=== PATIENT | female | born 2000 | race Caucasian/White ===

== ENCOUNTER 2022-09-30 19:18 | Emergency (ER) | payer OTHER, SELFPAY ==
[2022-09-30 19:48] VITALS: BP 123/80; PULSE 85; RESP 18; TEMP 36.7; O2SAT 99; BMI 28.2
--- NOTE | 2022-09-30 20:22 | ED.NURSE ---
pt. did not want to see MD and signed refusal form. pt. left ambulatory with mother.
--- NOTE | 2022-09-30 20:32 | ED.NURSE ---
pt. called stating she didn't want to be seen by MD. was unable to sign refusal note.
== END 2022-09-30 20:33 | disposition home or self-care (01) ==
LOC: ED 20:26
DX: Z53.21 Procedure and treatment not carried out due to patient leaving prior to being seen by health care provider (principal)
CPT/HCPCS: 99281

== ENCOUNTER 2023-04-10 22:55 | Emergency (ER) | payer OTHER, SELFPAY ==
[2023-04-10 23:00] VITALS: BP 120/82; PULSE 86; RESP 16; TEMP 36.8; O2SAT 98; BMI 28.1
[2023-04-10 23:52] VITALS: O2SAT 98
[2023-04-11] MEDS: KETOROLAC 30 MG/ML inj IVP (00:02)
--- NOTE | 2023-04-11 00:10 | ED_ITS ---
HPI - General Adult General Chief complaint: Chest Pain <Deo Stanley MD - Last Filed: 04/11/23 01:44> Stated complaint: chest pain, hard time breathing <Deo Stanley MD - Last Filed: 04/11/23 01:44> Time Seen by Provider: 04/10/23 23:03 <Deo Stanley MD - Last Filed: 04/11/23 01:44> History of Present Illness HPI narrative: CP with trouble taking deep breaths since 2099. waves come and go, feels heart beat in abd and shoulders - beating hard 22-year-old young woman presenting to the emergency department complaint of midsternal chest pain beginning around 3 hours prior to presentation. She has not noticed irregular heartbeats but has felt that it is fast. She did not really keep track of this indicating that she has been watching the monitor and seen it at 105. Head cold symptoms couple of weeks ago but that seems to have resolved. Otherwise no fever. No cough. There is some pleuritic component. No leg swelling or pain. I ask about similar occurrences and she says she did feel similarly around a COVID vaccines may have been x2. She admits to being anxious about feeling this chest pain but otherwise does not sound as though anxiety preceded chest pain that she is aware of. She is not feeling lightheaded. The pain improves somewhat when she sits up. Does not describe any nausea. No rashes noted. No trauma. <Deo Stanley MD - Last Filed: 04/11/23 01:44> Related Data Home medications: Home Medications Medication Instructions Recorded Confirmed bupropion HCl 75 mg tablet 75 mg PO DAILY 09/30/22 04/10/23 escitalopram oxalate 10 mg tablet 10 mg PO DAILY 09/30/22 04/10/23 escitalopram oxalate 5 mg tablet 5 mg PO DAILY 09/30/22 04/10/23 hydroxyzine HCl 25 mg tablet 25 mg PO BID PRN 09/30/22 09/30/22 levonorgestrel-ethinyl estradiol 1 tab PO DAILY 09/30/22 04/10/23 0.1 mg-20 mcg tablet (Vienva) <Deo Stanley MD - Last Filed: 04/11/23 01:44> Allergies/adverse reactions: Allergies Allergy/AdvReac Type Severity Reaction Status Date / Time amoxicillin Allergy Mild Hives Verified 04/11/23 01:43 cefdinir Allergy Mild Hives Verified 04/11/23 01:43 triptans AdvReac Uncoded 04/11/23 01:43 <Deo Stanley MD - Last Filed: 04/11/23 01:44> Review of Systems Status of ROS: Reports: 6 or more systems reviewed and unremarkable except as noted in History and below <Deo Stanley MD - Last Filed: 04/11/23 01:44> [facility] Social History: Social History Smoking Status: Never smoker How often do you have a drink containing alcohol: never AUDIT-C Alcohol total score: 0 Non-prescribed substance use: denies use <Deo Stanley MD - Last Filed: 04/11/23 01:44> Exam Narrative: Exam Narrative: Pleasant. Tall. Appears mildly anxious. Breathing easily though with inspiratory efforts for auscultation seems to cause a little discomfort. Cranial nerves 2-12 are intact. There is no supraclavicular crepitus. Lungs appear to be clear. Heart is on my evaluation elevated to tachycardic. No murmur rub or gallop. On triage measured 86. Abdomen is soft nontender. There is reproducible pain to palpation of the mid sternum. Legs are without edema and negative Homans/nontender. <Deo Stanley MD - Last Filed: 04/11/23 01:44> Const: Vital Signs, click to edit/add: Vital Signs - 24 hr 04/10/23 23:00 04/10/23 23:52 04/11/23 00:30 Temperature 98.3 F Pulse Rate [Left P ulse Oximeter] 86 87 Respiratory Rate 16 16 Blood Pressure [Le ft Upper Arm] 120/82 112/70 Pulse Oximetry 98 98 98 Oxygen Delivery Me thod Room Air Room Air 04/11/23 01:00 04/11/23 01:33 Temperature Pulse Rate [Left P ulse Oximeter] 91 87 Respiratory Rate 16 16 Blood Pressure [Le ft Upper Arm] 122/74 126/77 Pulse Oximetry 98 96 Oxygen Delivery Me thod Room Air Room Air <Deo Stanley MD - Last Filed: 04/11/23 01:44> Vital Signs, click to edit/add: Vital Signs - 24 hr 04/10/23 23:00 04/10/23 23:52 04/11/23 00:30 Temperature 98.3 F Pulse Rate [Left P ulse Oximeter] 86 87 Respiratory Rate 16 16 Blood Pressure [Le ft Upper Arm] 120/82 112/70 Pulse Oximetry 98 98 98 Oxygen Delivery Me thod Room Air Room Air 04/11/23 01:00 04/11/23 01:33 Temperature Pulse Rate [Left P ulse Oximeter] 91 87 Respiratory Rate 16 16 Blood Pressure [Le ft Upper Arm] 122/74 126/77 Pulse Oximetry 98 96 Oxygen Delivery Me thod Room Air Room Air <Briana Akins MD - Last Filed: 04/11/23 02:51> Documenting provider has reviewed patient's vital signs: yes <Deo Stanley MD - Last Filed: 04/11/23 01:44> Course Vital Signs Vital signs: Initial Vital Signs Temperature 98.3 F 04/10/23 23:00 Temperature Source Temporal Artery Scan 04/10/23 23:00 Pulse Rate 86 04/10/23 23:00 Respiratory Rate 16 04/10/23 23:00 Blood Pressure 120/82 04/10/23 23:00 Blood Pressure Mean 94 04/10/23 23:00 Blood Pressure Position Sitting 04/10/23 23:00 Pulse Oximetry 98 04/10/23 23:00 Oxygen Delivery Method Room Air 04/10/23 23:00 Vital Signs Temperature 98.3 F 04/10/23 23:00 Pulse Rate 86 04/10/23 23:00 Respiratory Rate 16 04/10/23 23:00 Blood Pressure 120/82 04/10/23 23:00 Pulse Oximetry 98 04/10/23 23:00 Oxygen Delivery Method Room Air 04/10/23 23:00 Temperature 98.3 F 04/10/23 23:00 Pulse Rate 87 04/11/23 01:33 Respiratory Rate 16 04/11/23 01:33 Blood Pressure 126/77 04/11/23 01:33 Pulse Oximetry 96 04/11/23 01:33 Oxygen Delivery Method Room Air 04/11/23 01:33 <Deo Stanley MD - Last Filed: 04/11/23 01:44> Initial Vital Signs Temperature 98.3 F 04/10/23 23:00 Temperature Source Temporal Artery Scan 04/10/23 23:00 Pulse Rate 86 04/10/23 23:00 Respiratory Rate 16 04/10/23 23:00 Blood Pressure 120/82 04/10/23 23:00 Blood Pressure Mean 94 04/10/23 23:00 Blood Pressure Position Sitting 04/10/23 23:00 Pulse Oximetry 98 04/10/23 23:00 Oxygen Delivery Method Room Air 04/10/23 23:00 Vital Signs Temperature 98.3 F 04/10/23 23:00 Pulse Rate 86 04/10/23 23:00 Respiratory Rate 16 04/10/23 23:00 Blood Pressure 120/82 04/10/23 23:00 Pulse Oximetry 98 04/10/23 23:00 Oxygen Delivery Method Room Air 04/10/23 23:00 Temperature 98.3 F 04/10/23 23:00 Pulse Rate 87 04/11/23 01:33 Respiratory Rate 16 04/11/23 01:33 Blood Pressure 126/77 04/11/23 01:33 Pulse Oximetry 96 04/11/23 01:33 Oxygen Delivery Method Room Air 04/11/23 01:33 <Briana Akins MD - Last Filed: 04/11/23 02:51> Medical Decision Making MDM Narrative Medical decision making narrative: Appears to have reproducible chest wall pain. That the improvement with sitting up suggests possible pericarditis. However I have already seen EKG and there is no evidence of that. Other differential includes pulmonary embolus, pneumothorax, pneumonia, vascular disruption and less likely ischemic cardiovascular disease. Will be doing a chest x-ray. EKG initially reviewed by me shows normal sinus rhythm rate 100 without ischemic changes appreciated. She is requesting ice water to drink. I think that's fine. Also ordered ketorolac IV. White count is not elevated. D-dimer does return elevated at 0.75. Negative troponin. Chest x-ray reviewed by me looks to show normal mediastinum normal cardiac silhouette no infiltrate and without pneumothorax. We discussed this elevated D-dimer. She has had intermittent tachycardia during her time here. Of pain is overall improved with ketorolac is given. I suspect still a chest wall pain/costochondritis picture. Perhaps exacerbated by anxiety. She, in consultation with her mother, acknowledge that prior episodes like this which both times were apparently after COVID injections were with elevated D-dimer and chest pain shortness of breath some tachycardia prompting the urgency room to do a CTA of her chest. These scans were negative. With attempted to locate these prior D-dimers; unable to do so at this time of night. No family history of coagulopathy. I think it would be acceptable to see over 24 hours where these symptoms are going treat with NSAIDs. Understandably Mae would like to proceed with CT imaging yet tonight. CT imaging will be pending at change of shift. See patient discharge plan anticipating negative chest for pulmonary embolus <Deo Stanley MD - Last Filed: 04/11/23 01:44> Appears to have reproducible chest wall pain. That the improvement with sitting up suggests possible pericarditis. However I have already seen EKG and there is no evidence of that. Other differential includes pulmonary embolus, pneumothorax, pneumonia, vascular disruption and less likely ischemic cardiovascular disease. Will be doing a chest x-ray. EKG initially reviewed by me shows normal sinus rhythm rate 100 without ischemic changes appreciated. She is requesting ice water to drink. I think that's fine. Also ordered ketorolac IV. White count is not elevated. D-dimer does return elevated at 0.75. Negative troponin. Chest x-ray reviewed by me looks to show normal mediastinum normal cardiac silhouette no infiltrate and without pneumothorax. We discussed this elevated D-dimer. She has had intermittent tachycardia during her time here. Of pain is overall improved with ketorolac is given. I suspect still a chest wall pain/costochondritis picture. Perhaps exacerbated by anxiety. She, in consultation with her mother, acknowledge that prior episodes like this which both times were apparently after COVID injections were with elevated D-dimer and chest pain shortness of breath some tachycardia prompting the urgency room to do a CTA of her chest. These scans were negative. With attempted to locate these prior D-dimers; unable to do so at this time of night. No family history of coagulopathy. I think it would be acceptable to see over 24 hours where these symptoms are going treat with NSAIDs. Understandably Mae would like to proceed with CT imaging yet tonight. CT imaging will be pending at change of shift. See patient discharge plan anticipating negative chest for pulmonary embolus Update: Receiving Physician: CT reviewed with no evidence of pulmonary embolism. Discharge with previous provider recommendations. No changes to plan of care.- Dr. Akins <Briana Akins MD - Last Filed: 04/11/23 02:51> Lab Data Lab results reviewed: Yes I reviewed the patient's lab results <Deo Stanley MD - Last Filed: 04/11/23 01:44> Labs: Lab Results 04/11/23 Range/Units 00:01 WBC 10.65 (4.50-11.00) K/uL RBC 4.38 (4.00-5.20) m/uL Hgb 12.9 (12.0-16.0) gm/dL Hct 38.8 (33.0-51.0) % MCV 89 (80-100) fL MCH 30 (26-34) pg MCHC 33 (32-36) gm/dL RDW Coeff of Holli 12.7 (11.5-15.5) % Plt Count 296 (140-440) K/uL Neut % (Auto) 70.2 (42.0-72.0) % Lymph % (Auto) 21.3 (20-44) % [place] % (Auto) 7.0 (0.0-11.0) % Eos % (Auto) 0.9 (0.0-7.0) % Baso % (Auto) 0.2 (0.0-3.0) % Neut # (Auto) 7.47 H (1.7-7.0) K/uL Lymph # (Auto) 2.27 (0.90-2.90) K/uL [place] # (Auto) 0.70 (0.00-0.90) K/UL Eos # (Auto) 0.10 (0.00-0.50) K/uL Baso # (Auto) 0.02 (0.00-0.30) K/uL D-Dimer Quant (PE/DVT) 0.75 H (0.00-0.50) ug/ml Sodium 141 (135-149) mmol/L Potassium 3.8 (3.6-5.1) mmol/L Chloride 109 (96-114) mmol/L Carbon Dioxide 24 (20-32) mmol/L BUN 12 (5-24) mg/dL Creatinine 0.6 (0.5-1.5) mg/dL Estimated Creat Clear 149.62 Estimated GFR 131 ml/min Glucose 143 H (60-115) mg/dL Calcium 9.0 (8.4-10.6) mg/dL Troponin I < 0.01 L (0.01-0.04) ng/mL C-Reactive Protein 1.3 H (0.5-1.0) mg/dL NT-Pro-B Natriuret Pep < 20 pg/mL POC Troponin I 0.00 L (0.01-0.04) ng/ml <Deo Stanley MD - Last Filed: 04/11/23 01:44> Lab Results 04/11/23 Range/Units 00:01 WBC 10.65 (4.50-11.00) K/uL RBC 4.38 (4.00-5.20) m/uL Hgb 12.9 (12.0-16.0) gm/dL Hct 38.8 (33.0-51.0) % MCV 89 (80-100) fL MCH 30 (26-34) pg MCHC 33 (32-36) gm/dL RDW Coeff of Holli 12.7 (11.5-15.5) % Plt Count 296 (140-440) K/uL Neut % (Auto) 70.2 (42.0-72.0) % Lymph % (Auto) 21.3 (20-44) % [place] % (Auto) 7.0 (0.0-11.0) % Eos % (Auto) 0.9 (0.0-7.0) % Baso % (Auto) 0.2 (0.0-3.0) % Neut # (Auto) 7.47 H (1.7-7.0) K/uL Lymph # (Auto) 2.27 (0.90-2.90) K/uL [place] # (Auto) 0.70 (0.00-0.90) K/UL Eos # (Auto) 0.10 (0.00-0.50) K/uL Baso # (Auto) 0.02 (0.00-0.30) K/uL D-Dimer Quant (PE/DVT) 0.75 H (0.00-0.50) ug/ml Sodium 141 (135-149) mmol/L Potassium 3.8 (3.6-5.1) mmol/L Chloride 109 (96-114) mmol/L Carbon Dioxide 24 (20-32) mmol/L BUN 12 (5-24) mg/dL Creatinine 0.6 (0.5-1.5) mg/dL Estimated Creat Clear 149.62 Estimated GFR 131 ml/min Glucose 143 H (60-115) mg/dL Calcium 9.0 (8.4-10.6) mg/dL Troponin I < 0.01 L (0.01-0.04) ng/mL C-Reactive Protein 1.3 H (0.5-1.0) mg/dL NT-Pro-B Natriuret Pep < 20 pg/mL POC Troponin I 0.00 L (0.01-0.04) ng/ml <Briana Akins MD - Last Filed: 04/11/23 02:51> Imaging Data CT scan - chest: Attestation: I have reviewed the pertinent imaging results. <Briana Akins MD - Last Filed: 04/11/23 02:51> My impression: Normal, excellent quality <Briana Akins MD - Last Filed: 04/11/23 02:51> Radiologist's impression: IMPRESSION: 1. No CT evidence of pulmonary thromboembolic disease. 2. No intrathoracic mass or consolidation. <Briana Akins MD - Last Filed: 04/11/23 02:51> Discharge Plan Discharge Clinical Impression: Acute chest wall pain, Tachycardia <Deo Stanley MD - Last Filed: 04/11/23 01:44> Patient Disposition: Home w/ Parent or Adult <Deo Stanley MD - Last Filed: 04/11/23 01:44> Condition: Improved <Deo Stanley MD - Last Filed: 04/11/23 01:44> Additional Instructions: Stay well-hydrated. I would take 500 mg naproxen 2 times daily with a little bit of food over the next 5 days. Return for uncontrolled pain, increasing shortness of breath, associated fever. Be seen again for symptoms lasting beyond 5 days. <Deo Stanley MD - Last Filed: 04/11/23 01:44> Prescriptions: No Action bupropion HCl 75 mg tablet 75 mg PO DAILY escitalopram oxalate 10 mg tablet 10 mg PO DAILY Patient Comments: TAKE 1 TABLET BY MOUTH EVERY DAY (Total 15mg) escitalopram oxalate 5 mg tablet 5 mg PO DAILY Patient Comments: TAKE 1 TABLET BY MOUTH EVERY DAY (Total 15mg) hydroxyzine HCl 25 mg tablet 25 mg PO BID PRN Patient Comments: TAKE 1 TABLET BY MOUTH TWICE DAILY NEEDED FOR ANXIETY AND BEFORE levonorgestrel-ethinyl estrad [Vienva] 0.1-20 mg-mcg tablet 1 tab PO DAILY <Deo Stanley MD - Last Filed: 04/11/23 01:44> Follow Up/Referrals: Provider,Not a Local [Primary Care Provider] - <Deo Stanley MD - Last Filed: 04/11/23 01:44> Stand Alone Forms: Heidi Shaulisth Info Instructions <Deo Stanley MD - Last Filed: 04/11/23 01:44>
[2023-04-11 00:15] LABS: Basophils Absolute Auto 0.02 K/uL (0.00-0.30); Basophils Percent Auto 0.2 % (0.0-3.0); Eosinophils Percent Auto 0.9 % (0.0-7.0); Hematocrit 38.8 % (33.0-51.0); Hemoglobin* 12.9 gm/dL (12.0-16.0); Immature Granulocytes Abs Auto 0.04 K/uL (0.00-0.30); Immature Granulocytes Pct Auto 0.4 %; Lymphocytes Absolute Auto 2.27 K/uL (0.90-2.90); Lymphocytes Percent Auto 21.3 % (20-44); Mean Corpuscular HGB Conc 33 gm/dL (32-36); Mean Corpuscular Hemoglobin 30 pg (26-34); Mean Corpuscular Volume 89 fL (80-100); Neutrophils Absolute Auto 7.47 K/uL (1.7-7.0); Neutrophils Percent Auto 70.2 % (42.0-72.0); Platelet Count* 296 K/uL (140-440); RDW Coefficient of Variation % 12.7 % (11.5-15.5); Red Blood Count 4.38 m/uL (4.00-5.20); White Blood Count* 10.65 K/uL (4.50-11.00)
[2023-04-11 00:17] LABS: Slide Review Reflex No
[2023-04-11 00:28] LABS: Chloride* 109 mmol/L (96-114); D Dimer Quantitative* 0.75 ug/ml (0.00-0.50); Potassium* 3.8 mmol/L (3.6-5.1); Sodium* 141 mmol/L (135-149)
[2023-04-11 00:30] VITALS: BP 112/70; PULSE 87; RESP 16; O2SAT 98
[2023-04-11 00:30] LABS: Creatinine* 0.6 mg/dL (0.5-1.5); Est. Creatinine Clearance* 149.62; Estimated Glomerular Filt Rate 131 ml/min
[2023-04-11 00:31] LABS: Carbon Dioxide* 24 mmol/L (20-32)
[2023-04-11 00:32] LABS: Blood Urea Nitrogen* 12 mg/dL (5-24); Glucose* 143 mg/dL (60-115)
[2023-04-11 00:34] LABS: C Reactive Protein* 1.3 mg/dL (0.5-1.0)
[2023-04-11 01:00] VITALS: BP 122/74; PULSE 91; RESP 16; O2SAT 98
[2023-04-11 01:01] LABS: NT Pro B Type NatriureticPept* < 20 pg/mL; Troponin I* < 0.01 ng/mL (0.01-0.04)
--- NOTE | 2023-04-11 01:24 | CRLHL7_ITS ---
For Patients: As a result of the Century Cures Act, medical imaging exams and procedure reports are released immediately into your electronic medical record. You may view this report before your referring provider. If you have questions, please contact your health care provider. INDICATION: . Midsternal chest pain, pleuritic, tachycardia TECHNIQUE: CT chest PE was acquired with 100 cc Omnipaque 350 IV contrast. COMPARISON: None FINDINGS: Pulmonary Arteries: No CT evidence of pulmonary thromboembolic disease. No pulmonary hypertension or right ventricular strain. Heart and Mediastinum: The visualized portions of the thyroid are normal. No axillary or supraclavicular lymphadenopathy. No mediastinal, hilar or retrocrural lymphadenopathy. Normal heart size. Normal caliber aorta. Lungs and Airways: No mass or consolidation. No endoluminal lesion. Pleura: The pleural spaces are normal. Abdomen: The visualized upper abdominal organs are unremarkable. Bones and soft tissues: The skeletal structures and soft tissues of the chest wall are unremarkable. IMPRESSION: 1. No CT evidence of pulmonary thromboembolic disease. 2. No intrathoracic mass or consolidation. Please note that all CT scans at this facility use dose modulation, iterative reconstruction, and/or weight-based dosing when appropriate to reduce radiation dose to as low as reasonably achievable. Dictated by Deo Gatica MD @ 04/11/2023 2:07:37 AM (Electronically Signed)
[2023-04-11 01:33] VITALS: BP 126/77; PULSE 87; RESP 16; O2SAT 96
[2023-04-11] MEDS: 0.9 % SODIUM CHLORIDE 1000 ml 1,000 ML IV (01:37)
--- NOTE | 2023-04-11 23:52 | CRLHL7_ITS ---
For Patients: As a result of the Century Cures Act, medical imaging exams and procedure reports are released immediately into your electronic medical record. You may view this report before your referring provider. If you have questions, please contact your health care provider. INDICATION: Midsternal chest pain. TECHNIQUE: Chest 1 view. COMPARISON: None. FINDINGS: Cardiovascular and mediastinum: Heart size and vasculature are normal in caliber and appearance. Lungs and pleural spaces: Lungs are clear. No sign of infiltrate or mass. No sign of pleural effusion. No pneumothorax. Bones and soft tissues: No significant findings. IMPRESSION: Negative chest. Dictated by Loc Wilkins MD @ 04/11/2023 1:02:09 AM (Electronically Signed)
== END 2023-04-11 02:18 | disposition home or self-care (01) ==
PROVIDERS: Emergency Provider Family Medicine
DX: R07.9 Chest pain, unspecified (principal); R00.0 Tachycardia, unspecified
CPT/HCPCS: 36415; 71045; 71260; 80048; 83880; 84484; 85025; 85379; 86140; 94761; 96374; 99283; 99284; 99285; J1885; J7030; Q9967